=== PATIENT | female | born 2005 | race Caucasian/White ===

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

== ENCOUNTER 2023-09-15 17:07 | Emergency (ER) | payer MEDICAID, OTHER ==
[~2023-09-15] VITALS: Ht 162.6 cm; Wt 53.5 kg
[2023-09-15] MEDS ORDERED: IV NORMAL SALINE 1000 ML BAG IV ONE (17:45)
[2023-09-15 18:09] LABS: BASOPHILS # (AUTO) 0.1 K/UL (0.0-0.2); BASOPHILS % (AUTO) 0.5 % (0.0-2.0); CALCIUM 8.9 mg/dL (8.5-10.1); CREATININE 0.7 mg/dL (0.6-1.3); DIFFERENTIAL COMMENT 1; EOSINOPHILS # (AUTO) 0.5 K/uL (0.0-0.7); EOSINOPHILS % (AUTO) 4.4 % (0.0-7.0); HEMATOCRIT 41.5 % (31.2-41.9); HEMOGLOBIN 14.1 g/dL (10.9-14.3); LYMPHOCYTES # (AUTO) 1.7 K/uL (0.8-4.8); LYMPHOCYTES % (AUTO) 15.5 % (20.5-74.5); MEAN CORPUSCULAR HEMOGLOBIN 29.5 uug (24.7-32.8); MEAN CORPUSCULAR HGB CONC 34 g/dL (32.3-35.6); MONOCYTES # (AUTO) 0.7 K/uL (0.1-1.30); MONOCYTES % (AUTO) 6.2 % (0-11); NEUTROPHILS # (AUTO) 7.8 K/uL (1.8-8.9); NEUTROPHILS % (AUTO) 73.4 % (31.5-64.5); PLATELET COUNT (AUTO) 262 K/uL (179-408); POTASSIUM 3.7 mmol/L (3.5-5.1); RED BLOOD CELL COUNT(AUTO) 4.77 MIL/uL (3.63-4.92); RED CELL DISTRIBUTION WIDTH 12.9 % (12.3-17.7); WHITE BLOOD COUNT (AUTO) 10.7 K/uL (3.8-11.8)
[2023-09-15 18:15] LABS: ALBUMIN 3.7 g/dL (3.4-5.0); BILIRUBIN,TOTAL 0.3 mg/dL (0.2-1.0); TOTAL PROTEIN, SERUM 7.2 g/dL (6.4-8.2)
[2023-09-15] MEDS ORDERED: CEFTRIAXONE 1 G in IV DEXTROSE 5% 50 ML IV ONE (18:30)
[2023-09-15] MEDS ORDERED: CEFTRIAXONE /D5W 50ML IVPB **ER PYXIS IV ONE (18:47)
[2023-09-15] MEDS ORDERED: ALBUTEROL SULFATE 2.5 MG/ 0.5 ML NEBU NEB ONE (19:00)
[2023-09-15] MEDS ORDERED: ALBU18HF2 INH (19:00)
[2023-09-15] MEDS ORDERED: IPRATROPIUM BROMIDE 0.5 MG/2.5 ML NEBU NEB ONE (19:00)
[2023-09-15] MEDS ORDERED: DOXY100C5 PO (19:00)
[2023-09-15] MEDS ORDERED: IPRATROPIUM BROMIDE 0.5 MG/2.5 ML NEBU ONE (19:08)
[2023-09-15] MEDS ORDERED: ALBUTEROL SULFATE 2.5 MG/3 ML NEBU ONE (19:08)
[2023-09-15 19:15] VITALS: O2SAT 97
[2023-09-15 19:42] VITALS: O2SAT 99
[2023-09-15 20:14] VITALS: BP 115/78
[2023-09-15 20:15] VITALS: O2SAT 98
== END 2023-09-15 20:15 | disposition home or self-care (01) ==
LOC: ER 17:17
DX: J40 Bronchitis, not specified as acute or chronic (principal)
CPT/HCPCS: 99285; 96365; 71045; 96361; 80053; 85025; 87040; 94644; 83605; J0696; J7040; A4606; A4663; J3590

== ENCOUNTER 2024-08-22 20:41 | Emergency (ER) | payer MEDICAID ==
[~2024-08-22] VITALS: Ht 162.6 cm; Wt 56.7 kg
[~2024-08-22 20:41] MED LIST: ALBU18HF2 INH; DOXY100C5 PO
[2024-08-22] MEDS ORDERED: predniSONE 10 MG TABLET ONE (20:54)
[2024-08-22] MEDS ORDERED: predniSONE 50 MG TABLET ONE (20:54)
[2024-08-22] MEDS ORDERED: IPRATROPIUM BROMIDE 0.5 MG/2.5 ML NEBU ONE (20:55)
[2024-08-22] MEDS ORDERED: ALBUTEROL SULFATE 2.5 MG/3 ML NEBU ONE (20:55)
[2024-08-22] MEDS: predniSONE 10 MG TABLET PO ONE (20:56)
[2024-08-22 21:09] LABS: BASOPHILS # (AUTO) 0.1 K/UL (0.0-0.2); BASOPHILS % (AUTO) 0.9 % (0.0-2.0); EOSINOPHILS # (AUTO) 0.4 K/uL (0.0-0.7); EOSINOPHILS % (AUTO) 2.6 % (0.0-7.0); LYMPHOCYTES # (AUTO) 1.7 K/uL (0.8-4.8); LYMPHOCYTES % (AUTO) 11.9 % (20.5-51.5); MEAN CORPUSCULAR HEMOGLOBIN 28.9 uug (24.7-32.8); MEAN CORPUSCULAR HGB CONC 33 g/dL (32.3-35.6); MEAN CORPUSCULAR VOLUME 86.6 fL (75.5-95.3); MONOCYTES # (AUTO) 0.6 K/uL (0.1-1.30); MONOCYTES % (AUTO) 4.2 % (0.0-11.0); NEUTROPHILS # (AUTO) 11.6 K/uL (1.8-8.9); NEUTROPHILS % (AUTO) 80.4 % (38.5-71.5); PLATELET COUNT (AUTO) 291 K/uL (179-408); RED BLOOD CELL COUNT(AUTO) 4.85 MIL/uL (3.63-4.92); RED CELL DISTRIBUTION WIDTH 13.4 % (12.3-17.7); WHITE BLOOD COUNT (AUTO) 14.4 K/uL (3.8-11.8)
[2024-08-22 21:10] VITALS: O2SAT 98
[2024-08-22] MEDS: ALBUTEROL SULFATE 2.5 MG/3 ML NEBU NEB ONE (21:10)
[2024-08-22] MEDS: IPRATROPIUM BROMIDE 0.5 MG/2.5 ML NEBU NEB ONE (21:10)
[2024-08-22 21:11] LABS: DIFFERENTIAL COMMENT 1
[2024-08-22 21:17] LABS: CALCIUM 9.5 mg/dL (8.5-10.1); CREATININE 0.8 mg/dL (0.6-1.3); POTASSIUM 3.6 mmol/L (3.5-5.1)
[2024-08-22 21:25] VITALS: O2SAT 99
[2024-08-22 21:29] LABS: ALBUMIN 3.9 g/dL (3.4-5.0); BILIRUBIN,DIRECT 0.1 mg/dL (0.0-0.2); BILIRUBIN,TOTAL 0.4 mg/dL (0.2-1.0); TOTAL PROTEIN, SERUM 8.3 g/dL (6.4-8.2)
[2024-08-22] MEDS ORDERED: PRED20TA PO (22:25)
[2024-08-22] MEDS ORDERED: AZIT250T PO (22:25)
[2024-08-22] MEDS ORDERED: ALBU8.5H8 IH (22:25)
[2024-08-22 22:37] VITALS: BP 124/80; TEMP 98; O2SAT 98
== END 2024-08-22 22:38 | disposition home or self-care (01) ==
LOC: ER 20:45
DX: J20.9 Acute bronchitis, unspecified (principal); Z20.822 Contact with and (suspected) exposure to COVID-19; Z79.52 Long term (current) use of systemic steroids; Z79.899 Other long term (current) drug therapy
CPT/HCPCS: 99284; 71045; 87426; 87804 ×2; 80076; 80048; 83880; 85025; 84145; 87040 ×2; 36415; 94640; J7512 ×2; A4606; A4663; J3590

== ENCOUNTER 2025-10-27 22:50 | Emergency (ER) | payer MEDICAID ==
[~2025-10-27] VITALS: Ht 162.6 cm; Wt 64.4 kg
[~2025-10-27 22:50] MED LIST changes: +ALBU8.5H8 IH; +AZIT250T PO; +PRED20TA PO
[2025-10-27 23:00] VITALS: BP 118/71
[2025-10-27] MEDS ORDERED: IPRATROPIUM BROMIDE 0.5 MG/2.5 ML NEBU ONE (23:47)
[2025-10-27] MEDS ORDERED: ALBUTEROL SULFATE 2.5 MG/3 ML NEBU ONE (23:47)
[2025-10-27] MEDS: IPRATROPIUM BROMIDE 0.5 MG/2.5 ML NEBU NEB ONE (23:54)
[2025-10-27] MEDS: ALBUTEROL SULFATE 2.5 MG/ 0.5 ML NEBU NEB ONE (23:54)
[2025-10-27 23:55] VITALS: O2SAT 97
[2025-10-28 00:11] VITALS: O2SAT 97
[2025-10-28] MEDS ORDERED: PRED20TA PO (00:30)
[2025-10-28 00:39] VITALS: BP 118/71; O2SAT 97
== END 2025-10-28 00:40 | disposition home or self-care (01) ==
LOC: ER 22:53
DX: J45.901 Unspecified asthma with (acute) exacerbation (principal); Z79.52 Long term (current) use of systemic steroids; J20.9 Acute bronchitis, unspecified; Z20.822 Contact with and (suspected) exposure to COVID-19
CPT/HCPCS: 99284; 71045; 87426; 87804 ×2; 94640; J7512; A4606; A4663; J3590